=== PATIENT | male | born 1970 | race Caucasian/White ===

== ENCOUNTER 2023-06-26 11:07 | Outpatient (CLI) | payer OTHER, SELFPAY | END 2023-06-26 11:08 | disposition home or self-care (01) | PROVIDERS: PCP Family Medicine; Visit Provider Family Medicine | DX: N50.89 Other specified disorders of the male genital organs (principal); Z13.228 Encounter for screening for other metabolic disorders; Z13.220 Encounter for screening for lipoid disorders; Z12.5 Encounter for screening for malignant neoplasm of prostate; Z13.0 Encounter for screening for diseases of the blood and blood-forming organs and certain disorders involving the immune mechanism | CPT/HCPCS: 80048; 80061; 81001; 84460; 85025; G0103 ==

== ENCOUNTER 2023-07-04 07:59 | Outpatient (CLI) | payer OTHER, SELFPAY ==
--- NOTE | 2023-07-04 08:15 | US_ITS ---
Patient: MILES HSU Facility:?[facility] Patient ID:?[id number] Site Patient ID:?[id number]. Site :?[id number] Study:?US-Testicle SCROTUM-07/04/2023 8:42:41 AM Ordering Physician:JORGE GOMEZ M.D. Final Report: INDICATION: Left scrotal mass/hydrocele COMPARISON: none TECHNIQUE: Sheldon scale imaging was performed of the scrotum. In addition color Doppler and spectral Doppler analysis was performed of the testes. FINDINGS: Circumscribed heterogeneous hypoechoic and vascular mass within the left testicle measures 3.8 x 6.2 x 5.0 cm. Small left hydrocele. Left epididymis not visualized. Incidental simple cyst within the right testicle measures 5 x 5 x 6 millimeters. Right testicle measures 4.4 x 2.3 x 2.5 cm. Left testicle measures 6.5 x 4.4 x 5.3 cm. 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 Urology referral recommended. Dictated by Jorge Parker MD @ 07/04/2023 12:56:50 PM Signed by:?Jorge Parker MD @07/04/2023 12:56:50 PM (Electronic Signature)
== END 2023-07-04 08:00 | disposition home or self-care (01) ==
LOC: US 08:00
PROVIDERS: PCP Family Medicine; Visit Provider Family Medicine
DX: N50.89 Other specified disorders of the male genital organs (principal)
CPT/HCPCS: 76870; 93976

== ENCOUNTER 2023-07-17 07:45 | Outpatient (CLI) | payer OTHER, SELFPAY ==
--- NOTE | 2023-07-17 08:00 | CRLHL7_ITS ---
For Patients: As a result of the 21st Century Cures Act, medical imaging exams and procedure reports are released immediately into your electronic medical record. You may view this report before your referring provider. If you have questions, please contact your health care provider. Indication: TESTICULAR TUMOR - STAGING Technique: CT Chest W/ 122CC ISOVUE 370 Please note that all CT scans at this facility use dose modulation, iterative reconstruction, and/or weight-based dosing when appropriate to reduce radiation dose to as low as reasonably achievable. Comparison: Testicular ultrasound 07/04/2023 Findings: In the chest, the visualized thyroid is within normal limits. A few scattered subcentimeter mediastinal and right hilar lymph nodes are present. There is no pericardial effusion. Mild bilateral subareolar gynecomastia. No enlarged axillary lymph nodes. Scattered subcentimeter distal esophageal/GE junction lymph nodes are also present. No fracture is present. Curvilinear scarring is present within the posterior right upper lobe. Subpleural bleb formation noted bilaterally. No pleural effusion or infiltrate. No pulmonary edema or pulmonary nodule. No fracture or suspicious osseous lesion. In the abdomen, there is no intrahepatic mass. Diffuse hepatic steatosis is present. Gallbladder normal without calcified stones or biliary obstruction. The spleen is unremarkable. Normal pancreas. The adrenal glands are normal. No hydronephrosis. No solid renal mass. No hiatal hernia. No enlarged lymph nodes within the mesenteric fat or retroperitoneum. Numerous subcentimeter central mesenteric lymph nodes are present. In the pelvis, there is no bowel obstruction. Enlarged left testicle is again noted. The bladder is incompletely distended. The prostate is nonenlarged. Prostate calcifications incidentally noted. No pelvic or inguinal adenopathy. No bowel obstruction or free air. No free fluid or abscess. Appendix normal. No fracture. 4 millimeter density in the left iliac bone. 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 Impression: There are a few scattered subcentimeter intrathoracic and mesenteric lymph nodes present which are nonspecific. However, no enlarged lymph nodes are present within the chest, abdomen or pelvis. No pulmonary nodule or hepatic mass. Hepatic steatosis is present. 4 millimeter density within the left iliac bone, probable bone island. Please note that all CT scans at this facility use dose modulation, iterative reconstruction, and/or weight-based dosing when appropriate to reduce radiation dose to as low as reasonably achievable. Dictated by Jorge Parker MD @ 07/17/2023 12:26:53 PM (Electronically Signed)
== END 2023-07-17 07:46 | disposition home or self-care (01) ==
LOC: CT 07:45
PROVIDERS: PCP Family Medicine; Visit Provider Family Medicine
DX: R93.812 Abnormal radiologic findings on diagnostic imaging of left testicle (principal); K76.0 Fatty (change of) liver, not elsewhere classified; M89.9 Disorder of bone, unspecified
CPT/HCPCS: 71260; 74177; Q9967

== ENCOUNTER 2023-07-23 09:15 | Outpatient (CLI) | payer OTHER, SELFPAY ==
--- OUTSIDE RECORDS SUMMARY | 2023-07-27 14:58 | XMS_ITS | Clinical Summary ---
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 Name Role Phone Pcp, No Primary Care Provider Unavailabl e Allergies No known active allergies Medications No known medications Active Problems Problem Noted Date Diagnosed Date Benign tumor of floor of mouth Social History Tobacco Use Types Packs/Day Years Used Date Smoking Tobacco: Former Smokeless Tobacco: Never Alcohol Use Standard Drinks/Week Comments Yes 0 (1 standard drink = 0.6 oz pur e alcohol) twice a week Sex and Gender Information Value Date Recorded Sex Assigned at Not on file Gender Identity Not on file Sexual Orientation Not on file Obstetrics History Last Filed Vital Signs Vital Sign Reading Time Taken Comments Blood Pressure 125/76 02/26/2017 8:20 AM MEDICAL REGISTRAR Pulse 95 02/26/2017 8:20 AM MEDICAL REGISTRAR Temperature 37 ??C (98.6 ??F) 02/26/2017 6:58 AM MEDICAL REGISTRAR Respiratory Rate 18 02/26/2017 8:20 AM MEDICAL REGISTRAR Oxygen Saturation 95% 02/26/2017 8:20 AM MEDICAL REGISTRAR Inhaled Oxygen Concentration - - Weight 113.9 kg (251 lb 3 oz) 02/26/2017 6:42 AM MEDICAL REGISTRAR Height 185.4 cm (6' 1) 02/26/2017 6:42 AM MEDICAL REGISTRAR Body Mass Index 33.14 02/26/2017 6:42 AM MEDICAL REGISTRAR Plan of Treatment Health Maintenance Due Date Last Done Comments Tdap 01/23/1980 HIV for age 15-65 01/23/1984 Hepatitis C screening for ag e 18-79 1987 Tetanus booster 1989 Colonoscopy through age 75 2014 Lipids for age 45-75 2014 BMI (ht and wt on same day) for age 18+ 01/28/2018 01/28/2017 Depression screening for age 12+ 01/28/2018 01/29/20 17 Zoster (shingles) series for age 50+ (1 of 2) 2019 COVID-19 vaccine series ( - 2022- season) 2022 Influenza for age 50-64 10/20/2023 Pneumococcal series for age 6-64 Aged Out No longer eligible based on patient's age to complete this topic Care Teams Seed Corn Manager Production Relationship Specialty Start Date End Date Pcp, No . PCP - General 01/28/17
--- OUTSIDE RECORDS SUMMARY | 2023-07-27 14:58 | XMS_ITS | Data Portability ---
Author Organization [facility], [facility] Address [address] [place] [address] Care Team Providers Care Community Affairs Manager Name Role Phone RONI ARTIS Primary Care Provider Assessment No assessment recorded. Plan of Treatment Reminders Order Date Submit Date Provider Last Modified By Organization Details Last Modified Time Details Appointments None recorded. Lab urinalysis , dipstick 2023 024 [email or web address] [facility], [address] [place], [address], 14:27:21 Referral None recorded. Procedures None recorded. Surgeries None recorded. Imaging None recorded. Medication Orders None recorded. Patient TargetsNo targets recorded. Patient Instructions Encounter Date Encounter Id Patient Instructions Last Modified By Organization Details Last Modified Time 07/26/2023 [id number] discussed findings and will set up for left inguinal orchiectomy robby BETANCUR [email or web address] Not available 07/26/2023 14:43:10 Reason for Referral None Reported. Results Created Date Observation Date Name Description Value Unit Range Abnormal Flag LastModifiedBy Organization Detail LastModifiedTime 07/26/19 24 07/26/2023 urina lysis , dipst ick BLOOD Negati ve Not Available [facility] [address], [place], [address], 07/26/2023 14:25:13 07/26/19 24 07/26/2023 urina lysis , dipst ick NITRITES Negati ve Not Available [facility] [address], [place], [address], 07/26/2023 14:25:13 07/26/19 24 07/26/2023 urina lysis , dipst ick p.H. 5.0 Not Available [facility] [address], [place], [address], 07/26/2023 14:25:13 07/26/19 24 07/26/2023 urina lysis , dipst ick LEUKOCYTES Negati ve Not Available [facility] [address], [place], [address], 07/26/2023 14:25:13 07/23/19 24 07/17/2023 CT, chest + abdom en + pelvi s, w/ contr ast No observ ation record ed. [address] [place], [address], 07/24/2023 14:43:10 Result Notes None recorded. Procedures Surgical History None recorded. Imaging Results Imaging Date Name Status LastModified by Organiz ation Details LastModified Time 07/17/2023 CT, chest + abdomen + pelvis, w/ contrast completed [address] [place], [address], 07/24/2023 14:43:10 Procedure Notes None recorded. Medical Equipment None Reported. Allergies No known drug allergies Medications Name Sig Start Date Stop Date Status Note LastModified by Organization Details LastModified Time indomethacin 50 mg capsule TAKE ONE CAPSULE BY MOUTH THREE TIMES A DAY NEEDED FOR GOUT active Not Available Not Available No t Available Vitals Date Recorded Body height Body mass index (BMI) Body weight Provider Name and Address Organization Details Last Updated DateTime 07/26/2023 185.42 cm 31 kg/m2 260781.21 g Von Salcedo MD [address] [facility],[address], [place], [address], [facility] 07/26/2023 14:18:15 Social History Question Answer Notes LastModified by Organizat ion Details LastModified Time Tobacco Smoking Status Current Some Day Smoker Von Salcedo MD [address] [facility],[address], [place], [address], [facility] 07/26/2023 14:22:27 What Is Your Level Of Alcohol Consumption? Occasional [email or web address] Information not available 07/26/2023 What Is Your Level Of Caffeine Consumption? Occasional [email or web address] Information not available 07/26/2023 Are You Currently Employed? Yes [email or web address] Information not available 07/26/2023 Recreational Drug Use No Information not available 07/26/2023 What Was The Date Of Your Most Recent Tobacco Screening? 07/26/2023 [email or web address] Information not available 07/26/2023 Have You Ever Been Counseled For Unhealthy Alcohol Use? No [email or web address] Information not available 07/26/2023 What Is Your Relationship Status? Unknown [email or web address] Information not available 07/26/2023 How Much Tobacco Do You Smoke? 1 PPW [email or web address] Information not available 07/26/2023 Do You Use Any Illicit Or Recreational Drugs? No [email or web address] Information not available 07/26/2023 Has Tobacco Cessation Counseling Been Provided? No [email or web address] Information not available 07/26/2023 Do You Or Have You Ever Used Any Other Forms Of Tobacco Or Nicotine? No Information not available 07/26/2023 How Many Days In The Past Year Have You Consumed 5 Or More Drinks? 0 Information no t available 07/26/2023 Sex: Male Functional Status None recorded. Mental Status None recorded. Family History Relationship Description Onset Age of this Age Resolved Age Notes Mother Family history of cancer Pt is not sure what type of CA Medical History Condition Response Sexually Transmitted Infection N Diabetes N Other N Bleeding Disorder N High Blood Pressure N Kidney Stones N High Cholesterol N GERD/Acid Reflux N Heart Disease N Cancer N Depression N Lung Disease N Immunizations Vaccine Type Date Status Provider Name and Address Organization Details Recorded Time COVID-19, mRNA, LNP-S, PF, 30 mcg/0.3 mL dose 09/27/2020 completed Von Salcedo MD [address] [facility],[address], [place], [address], [facility] 07/26/2023 14:18:24 Past Encounters Encounter ID Performer Location Encounter Start Date Encounter Closed Date Diagnosis/Indication Diagnosis SNOMED-CT Code [id number] Von Salcedo MD [facility] [address] [place] [address] 07/26/2023 14:02:03 07/26/2023 14:43:39 Urinary tract infectious disease 53909679 Testicular mass [id number] Health Concerns Section Related Observation LastModified by Organization Detai ls LastModified Time None Recorded Concern Status LastModified by Organization Details LastModified Time None Recorded Advance Directives Directive None Recorded Payers Encounter Date Sequence Insurance Name Policy Number Policy Hernandez Covered Member ID Hernandez Member ID Guarantor Name 07/26/2023 1 [facility] [id number] Saul Mckinney [id number] Saul Mckinney Notes Date Note Type Note Provider Name and Address Organization Details Recorded Time 07/26/2023 text/html HPI Notes: seein g for left testis mass. was seen by PCP and thought to have hydrocele but U/S done and showed a 4x5cm left testis mass. had CT Ch/abd/pelvis showing no clear metastatic disease. had tumor markers done this week and AFP was 3 and B-Hcg was 18 (H), LDH 181. swelling started in Feb. Von Salcedo MD [address] [facility],[address], [place], [address], [facility] 07/26/2023 14:43:36
--- OUTSIDE RECORDS SUMMARY | 2023-07-27 14:58 | XMS_ITS | Continuity of Care Document ---
Author Organization [facility], [facility] Address [address] [place] [address] Care Team Providers Care Archives Technician Name Role Phone RONI ARTIS Primary Care Provider Assessment No assessment recorded. Plan of Treatment Reminders Order Date Submit Date Provider Last Modified By Organization Details Last Modified Time Details Appointments None recorded. Lab urinalysis , dipstick 2023 024 [email or web address] [facility], [address], [place], [address], 14:27:21 Referral None recorded. Procedures None recorded. Surgeries None recorded. Imaging None recorded. Medication Orders None recorded. Patient TargetsNo targets recorded. Patient Instructions Encounter Date Encounter Id Patient Instructions Last Modified By Organization Details Last Modified Time 07/26/2023 [id number] discussed findings and will set up for left inguinal orchiectomy robby or GYPSY [email or web address] Not available 07/26/2023 14:43:10 Reason for Referral None Reported. Results Created Date Observation Date Name Description Value Unit Range Abnormal Flag LastModifiedBy Organization Detail LastModifiedTime 07/26/1907/26/2023 urina lysis , dipst ick BLOOD Negati ve Not Available [facility] [address], [place], [address], 07/26/2023 14:25:13 07/26/19 24 07/26/2023 urina lysis , dipst ick NITRITES Negati ve Not Available [facility] [address], [place], [address], 07/26/2023 14:25:13 07/26/19 24 07/26/2023 urina lysis , dipst ick p.H. 5.0 Not Available [facility] [address], [place], [address], 07/26/2023 14:25:13 07/26/19 24 07/26/2023 urina lysis , dipst ick LEUKOCYTES Negati ve Not Available [facility] [address], [place], [address], 07/26/2023 14:25:13 07/23/19 24 07/17/2023 CT, chest + abdom en + pelvi s, w/ contr ast No observ ation record ed. [email or web address] [facility] [address] [place], [address], 07/24/2023 14:43:10 Result Notes None recorded. Medical Equipment None Reported. [...] Updated DateTime 07/26/2023 185.42 cm 31 kg/m2 660701.21 g Von Salcedo MD [address] [place] [address], [address], [facility] 07/26/2023 14:18:15 Social History Question Answer Notes LastModified by Organizat ion Details LastModified Time Tobacco Smoking Status Current Some Day Smoker Von Salcedo MD [address] [place] [address], [address], [facility] 07/26/2023 14:22:27 What Is Your Level Of Alcohol Consumption? Occasional [email or web address] Information not available 07/26/2023 What Is Your Level Of Caffeine Consumption? Occasional [email or web address] Information not available 07/26/2023 Are You Currently Employed? Yes [email or web address] Information not available 07/26/2023 Recreational Drug Use No [email or web address] Information not available 07/26/2023 What Was The Date Of Your Most Recent Tobacco Screening? 07/26/2023 [email or web address] Information not available 07/26/2023 Have You Ever Been Counseled For Unhealthy Alcohol Use? No [email or web address] Information not available 07/26/2023 What Is Your Relationship Status? Unknown [email or web address] Information not available 07/26/2023 How Much Tobacco Do You Smoke? 1 PPW [email or web address] Information not available 07/26/2023 Do You Use Any Illicit Or Recreational Drugs? No [email or web address] Information not available 07/26/2023 Has Tobacco Cessation Counseling Been Provided? No [email or web address] Information not available 07/26/2023 Do You Or Have You Ever Used Any Other Forms Of Tobacco Or Nicotine? No Information not available 07/26/2023 How Many Days In The Past Year Have You Consumed 5 Or More Drinks? 0 [email or web address] Information no t available 07/26/2023 Sex: Male [...] mL dose 09/27/2020 completed Von Salcedo MD [address] [place] [address],[place] [address], [address] 07/26/2023 14:18:24 Past Encounters Encounter ID Performer Location Encounter Start Date Encounter Closed Date Diagnosis/Indication Diagnosis SNOMED-CT Code [id number] Von Salcedo MD [facility] [address] [place] [address] 07/26/2023 14:02:03 07/26/2023 14:43:39 Urinary tract infectious disease [id number] Testicular mass 33176732 Health Concerns Section Related Observation LastModified by Organization Detai ls LastModified Time None Recorded Concern Status LastModified by Organization Details LastModified Time None Recorded Payers Encounter Date Sequence Insurance Name Policy Number Policy Hernandez Covered Member ID Hernandez Member ID Guarantor Name 07/26/2023 1 [facility] [id number] Saul Mckinney [id number] Saul Mckinney Notes Date Note Type Note [...] swelling started in Feb. Von Salcedo MD [address] [facility],[address], [place], [address], [facility] 07/26/2023 14:43:36
== END 2023-07-23 09:16 | disposition home or self-care (01) ==
LOC: NFLDREF 07-27 14:57
PROVIDERS: PCP Family Medicine; Referring Provider Family Medicine; Visit Provider Family Medicine
DX: D40.12 Neoplasm of uncertain behavior of left testis (principal)
CPT/HCPCS: 82105; 83615; 84704

== ENCOUNTER 2023-09-27 12:26 | Outpatient (CLI) | payer OTHER, SELFPAY ==
--- OUTSIDE RECORDS SUMMARY | 2023-09-27 12:32 | XMS_ITS | Clinical Summary ---
Author Organization [facility] Address [place], [place] [address] Care Team Providers Care Fountain Brush Assembler Name Role Phone Jorge Person MD Primary Care Provider + Allergies No known active allergies Medications Medication Sig Dispensed Refills Start Date End Date Status indomethacin (INDOCIN) 50 mg capsule Take 50 mg by mouth three times daily. Active oxyCODONE-acetamin ophen (PERCOCET) 5-325 mg per tabletIndications: Scrotal mass Take 1 Tablet by mouth every 6 hours if needed for Pain. Max acetaminophen dose: 4000mg in 24 hrs. 12 Tablet 08/14/2023 Active Active Problems Problem Noted Date Diagnosed Date Benign tumor of floor of mouth Encounters Date Type Department Care Team Description 08/14/2023 8:56 AM CDT - 08/14/2023 11:09 AM CDT Surgery [facility] [address] [place] [address] Von Salcedo MD left inguinal orchiectomy 08/14/2023 8:49 AM CDT Anesthesia Event [facility] [address] [place] [address] Ed Ireland MD Dawodu, Adeniyi Akintunde, CRNA 08/14/2023 6:43 AM CDT - 08/14/2023 1:24 PM CDT Hospital Encounter [facility] [address] [place] [address] Von Salcedo MD Scrotal mass (Primary Dx) Discharge Disposition: Home Self Care 08/13/2023 Travel from Last 3 Months Social History Tobacco Use Types Packs/Day Years [...] Sign Reading Time Taken Comments Blood Pressure 112/65 08/14/2023 12:22 PM CDT Pulse 61 08/14/2023 12:22 PM CDT Temperature 36.1 ??C (97 ??F) 08/14/2023 11: 15 AM CDT Respiratory Rate 12 08/14/2023 12:1 1 PM CDT Oxygen Saturation 94% 08/14/2023 12: 22 PM CDT Inhaled Oxygen Concentration - - Weight 108.7 kg (239 lb 9.6 oz) 08/14/2023 7:44 AM CDT Height 185.4 cm (6' 1) 08/14/2023 7:44 AM CDT Body Mass Index 31.61 08/14/2023 7:44 AM CDT Plan of Treatment Health Maintenance Due Date [...] of 2) 2019 COVID-19 vaccine series ( season) 2022 09/27/2020 Influenza for age 50-64 10/20/2023 Pneumococcal series for age 6-64 Aged Out No longer eligible based on patient's age to complete this topic Procedures Procedure Name Priority Date/Time Associated Diagnosis Comments PATH TISSUE EXAM Today 08/14/2023 9:34 AM CDT SUPRAGLOTTIC-LMA Routine 08/14/2023 9:06 AM CDT ORCHIECTOMY INGUINAL Elective 08/14/2023 8:28 AM CDT N50.89: Other specified disorders of the male genital organs SCAN CORRESP-EKG RESULTS 08/13/2023 3:39 PM CDT SCAN CORRESP-LABORATORY RESULTS 08/13/2023 3:39 PM CDT from Last 3 Months Results * PATH TISSUE EXAM (08/14/2023 9:34 AM CDT) Case Report Pathology Report ?Case: [id number] ? Authorizing Provider: ??Von Salcedo MD ?? Collected: ? 08/14/2023 0934 ? Ordering Location: ? [facility] ?Received: ?08/14/2023 0956 ? Hospital ? Pathologist: ? Juanjose Delgado MD ? Specimen: ?Left Testicle ? 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 Tumor is confined to the testis and involves the rete testis, 6.5 cm 3. The surgical margins are negative for tumor 4. Negative for lymphatic/vascular invasion by tumor 5. Intratubular germ cell neoplasia, unclassified 6. Benign spermatic cord lipoma 7. Please see testis cancer staging parameters below ?? 4 4:07 PM T [facility] Clinical Information Left testicular mass 4 4:07 PM T [facility] Gross Description A) Received fresh, labeled with the patient's name and left testicle, is a radical orchiectomy specimen (202.4 g, 13.9 x 7.0 x 5.5 cm) composed of the testis (7.2 x 6.2 x 4.8 cm), epididymis (7.3 x 3.7 x 1.7 cm), and attached spermatic cord (11.0 cm long and 1.4 cm in average diameter). The spermatic cord is pink-mckeon with a yellow soft mass measuring 5.7 x 3.5 x 3.2 cm grossly consistent with a cord lipoma. The pink-mckeon and purple-bustos loosely adherent parietal tunica vaginalis (inked blue) is intact and grossly unremarkable and incised revealing a thin tunica vaginalis cavity containing minimal clear serous fluid. The visceral tunica of the testis and epididymis is smooth without masses or roughening. Sectioning the testis reveals a 6.5 x 6.3 x 4.5 by cm well-defined pink-mckeon mass comprising approximately 95% of the testis, including the rete testis. ??This mass is characterized by homogenous lobulated fleshy pink-mckeon focally hyperemic cut surfaces and irregular vaguely defined borders. ??No discrete necrosis/hemorrhage or cystic change is identified. The mass is confined to the testis, abutting/pushing but not extending beyond the tunica albuginea. ??The mass measures 11.0 cm from the spermatic cord margin. Sectioning the attached lipoma reveals minus mckeon-yellow fatty focally hyperemic cut surfaces with no distinct significant hemorrhage/necrosis. The minimal peripherally located uninvolved testicular parenchyma consists of homogenous pink-mckeon unremarkable parenchyma which strings with ease. ??No discrete cysts are identified. The epididymis consists of soft mckeon-pink tubular soft tissue without any distinct masses or cysts. Specimen photographs have been uploaded to the case. Interactive Account Manager sections are submitted as follows: 1. Spermatic cord margin, en face (inked yellow) 2. ??Mass involving rete testes with adjacent hilar soft tissue 3. Mass to tunica albuginea/vaginalis 4. Mass to uninvolved testicular parenchyma 5. Mass to epididymis 6. ??Additional safety representative mass 7-8. ??Spermatic cord lipoma, safety representative ADW 08/14/2023 4 4:07 PM T [facility] Microscopic Description The final diagnosis is based on microscopic examination of appropriate sections of all specimens. Immunohistochemical staining was performed, the results of which are as follows: - OCT4: Positive (diffuse) - SALL4: Positive (diffuse) - hCG: Positive in multinucleated cells (syncytiotrophoblast) - CD30: Negative - Glypican: Negative 4 4:07 PM T [facility] SYNOPTIC REPORTING TESTIS: Radical Orchiectomy TESTIS: RADICAL ORCHIECTOMY - All Specimens 8th Edition - Protocol posted: 11/07/2022 CLINICAL ?? Pre-Orchiectomy Serum Tumor Marker(s): ?Beta-subunit of human chorionic gonadotropin (b-hCG) elevation ?? Post-Orchiectomy Serum Tumor Marker(s): ?Unknown ?? Serum Tumor Markers (S): ?SX (serum marker studies not available or performed) SPECIMEN ?? Specimen Laterality: ?Left TUMOR ?? Tumor Focality: ?Unifocal ?? Tumor Size: ?Greatest dimension of main tumor mass (Centimeters): 6.5 cm ? Additional Dimension of Main Tumor Mass (Centimeters): ?6.3 cm ? Additional Dimension of Main Tumor Mass (Centimeters): ?4.5 cm ?? Histologic Type: ?Seminoma with syncytiotrophoblastic cells ?? Tumor Extent: ?Invades rete testis ?? Lymphatic and / or Vascular Invasion: ?Not identified MARGINS ?? Margin Status: ?All margins negative for tumor REGIONAL LYMPH NODES ?? Regional Lymph Node Status: ?Not applicable (no regional lymph nodes submitted or found) pTNM CLASSIFICATION (AJCC 8th Edition) ?? Reporting of pT, pN, and (when applicable) pM categories is based on information available to the pathologist at the time the report is issued. As per the AJCC (Chapter 1, 8th Ed.) it is the managing physician? s responsibility to establish the final pathologic stage based upon all pertinent information, including but potentially not limited to this pathology report. ?? pT Category: ?pT1b ?? pN Category: ?pN not assigned (no nodes submitted or found) ADDITIONAL FINDINGS ?? Additional Findings: ?Germ cell neoplasia in situ (GCNIS) ?? Comment(s): ?Block for ancillary testing: A6 4:07 PM CDT [facility] Additional Information Interpreted at [facility] - [address] [place] [id number] Immunohistochemistry controls were reviewed and approved by the pathologist during this examination. 4:07 PM CDT [facility] Tissue (Left Testicle) 08/14/2023 9:34 AM CDT 08/14/2023 9:56 AM CDT Von Salcedo MD PATHOLOGY/CYTOLOG Y [facility] [address] [place] [address], * [facility] PR[facility] (08/14/2023 9:06 AM CDT) Narrative Deandre Nunn CRNA - 08/14/2023 9:06 AM CDT Deandre Nunn CRNA ? 08/14/2023 ??9:07 AM Procedure: Supraglottic Patient location during procedure: OR Supraglottic Airway Properties Mask Ventilation: not attempted Type: unique Tube Size: 5 Insertion Attempts: 1 Placement Verification: CO2 detection Assessment Assessment: atraumatic and dentition unchanged Ed Ireland MD ANESTHESIA PX NOTE O RDERABLES * SCAN CORRESP-LABORATORY RESULTS (08/13/2023 3:39 PM CDT) Narrative 08/13/2023 3:39 PM CDT Ordered by an unspecified provider. Other Clinical Staff OTHER * SCAN CORRESP-EKG RESULTS (08/13/2023 3:39 PM CDT) Narrative 08/13/2023 3:39 PM CDT Ordered by an unspecified provider. Other Clinical Staff OTHER from Last 3 Months Advance Directives * Full Code (Latest Code Status on File) Date Activated Date Inactivated Comments 08/14/2023 7:35 AM 08/14/2023 3:24 PM Question Answer Comments Code Status Discussion: Not Discussed Care Teams Fountain Brush Assembler Relationship Specialty Start Date End Date Jorge Person MD [address] [place] [address] PCP - General Family Practice 08/13/23
--- OUTSIDE RECORDS SUMMARY | 2023-09-27 12:32 | XMS_ITS | Continuity of Care Document ---
Author Organization [facility] Address [address] [place] [address] Care Team Providers Care Application Penetration Tester Name Role Phone ARTIS RONI Primary Care Provider Assessment No assessment recorded. Plan of Treatment Reminders Order Date Submit Date Provider Last Modified By Organization Details Last Modified Time Details Appointments None recorded. Lab urinalysis , dipstick 2023 024 [email or web address] [facility], [address], [place], [address], 14:27:21 Referral None recorded. Procedures None recorded. Surgeries None recorded. Imaging None recorded. Medication Orders None recorded. Patient TargetsNo targets recorded. Patient Instructions Encounter Date Encounter Id Patient Instructions Last Modified By Organization Details Last Modified Time 07/26/2023 [id number] discussed findings and will set up for left inguinal orchiectomy robby BETANCUR [email or web address] Not available 07/26/2023 14:43:10 Reason for Referral PT1b seminoma Referring Physician: Von Salcedo, Urology, Encounter Date: 09/06/2023 Results Created Date Observation Date Name Description Value Unit Range Abnormal Flag LastModifiedBy Organization Detail LastModifiedTime 07/26/1907/26/2023 urina lysis , dipst ick BLOOD Negati ve Not Available [facility] [address], [place], [address], 07/26/2023 14:25:13 07/26/19 24 07/26/2023 urina lysis , dipst ick NITRITES Negati ve Not Available [facility] [address], [place], [address], 07/26/2023 14:25:13 07/26/19 24 07/26/2023 urina lysis , dipst ick p.H. 5.0 Not Available [facility] [address], [place], [address], 07/26/2023 14:25:13 07/26/19 24 07/26/2023 urina lysis , dipst ick LEUKOCYTES Negati ve Not Available [facility] [address], [place], [address], 07/26/2023 14:25:13 07/23/19 24 07/17/2023 CT, chest + abdom en + pelvi s, w/ contr ast No observ ation record ed. [email or web address] [facility] [address] [place], [address], 07/24/2023 14:43:10 Result Notes None recorded. Medical Equipment None Reported. Allergies No known drug allergies Medications Name Sig Start Date Stop Date Status Note LastModified by Organization Details LastModified Time indomethaci n 50 mg capsule TAKE ONE CAPSULE BY MOUTH THREE TIMES A DAY; ADMINISTE R WITH FOOD OR MILK 09/04 completed Not Available Not Available Not Available Vitals Date Recorded Body height Body mass index (BMI) Body weight Provider Name and Address Organization Details Last Updated DateTime 07/26/2023 185.42 cm 31 kg/m2 749653.21 g Von Salcedo MD [address] [place] [address],[address], [address], [facility] 07/26/2023 14:18:15 Social History Question Answer Notes LastModified by Organizat ion Details LastModified Time Tobacco Smoking Status Current Some Day Smoker Von Salcedo MD [address] [place] [address],[address], [address], [facility] 07/26/2023 14:22:27 What Is Your Level Of Alcohol Consumption? Occasional [email or web address] Information not available 07/26/2023 What Is Your Level Of Caffeine Consumption? Occasional [email or web address] Information not available 07/26/2023 Are You Currently Employed? Yes [email or web address] Information not available 07/26/2023 Recreational Drug Use No [email or web address] Information not available 07/26/2023 What Was The Date Of Your Most Recent Tobacco Screening? 09/05/2023 [email or web address] Information not available 09/05/2023 Have You Ever Been Counseled For Unhealthy Alcohol Use? No [email or web address] Information not available 07/26/2023 What Is Your Relationship Status? Unknown [email or web address] Information not available 07/26/2023 How Much Tobacco Do You Smoke? 1 PPW [email or web address] Information not available 07/26/2023 Do You Use Any Illicit Or Recreational Drugs? No [email or web address] Information not available 07/26/2023 Has Tobacco Cessation Counseling Been Provided? No [email or web address] Information not available 07/26/2023 Do You Or Have You Ever Used Any Other Forms Of Tobacco Or Nicotine? No [email or web address] Information not available 07/26/2023 How Many Days In The Past Year Have You Consumed 5 Or More Drinks? 0 [email or web address] Information no t available 07/26/2023 Sex: Unknown Functional Status None recorded. Mental Status None recorded. Family History Relationship Description Onset Age of this Age Resolved Age Notes Mother Family history of malignant neoplasm Pt is not hossein e what type of CA Medical History Condition [...] mL dose 09/27/2020 completed Von Salcedo MD [address] [place] [address],[facility] [address], [place], [address], [facility] 07/26/2023 14:18:24 Past Encounters Encounter ID Performer Location Encounter Start Date Encounter Closed Date Diagnosis/Indication Diagnosis SNOMED-CT Code [id number] Von Salcedo MD [facility] [address] [place] [address] 07/26/2023 14:02:03 07/29/2023 11:06:24 Urinary tract infectious disease 58168031 Testicular mass 57486782 Health Concerns Section Related Observation LastModified by Organization Detai ls LastModified Time None Recorded Concern Status LastModified by Organization Details LastModified Time None Recorded Payers Encounter Date Sequence Insurance Name Policy Number Policy Hernandez Covered Member ID Hernandez Member ID Guarantor Name 07/26/2023 1 [facility] [id number] Madiha Mckinney [id number] Saul Mckinney Notes Date Note Type Note [...] started in Feb. Von Salcedo MD [address] [facility],[address], [place], [address], [facility] 07/26/2023 14:43:36
--- NOTE | 2023-09-27 13:00 | CRLHL7_ITS ---
For Patients: As a result of the Century Cures Act, medical imaging exams and procedure reports are released immediately into your electronic medical record. You may view this report before your referring provider. If you have questions, please contact your health care provider. Indication: TESTICULAR CANCER FOLLOW UP Technique: ABDOMEN PELVIS WITH IOSVUE 370 119CC AND WATER Please note that all CT scans at this facility use dose modulation, iterative reconstruction, and/or weight-based dosing when appropriate to reduce radiation dose to as low as reasonably achievable. Comparison: 07/17/2023 Findings: Lung bases are clear. Fatty liver. Gallbladder unremarkable. Normal spleen and pancreas. Normal adrenal glands, kidneys and ureters. Stable subcentimeter gastroesophageal junction lymph nodes. Bladder normal. Prostate calcifications. No bowel obstruction, free air, free fluid or abscess. Normal appendix. Postop changes of left orchiectomy. Stable appearance of the osseous structures without suspicious lesion. Impression: No evidence of metastatic disease. Please note that all CT scans at this facility use dose modulation, iterative reconstruction, and/or weight-based dosing when appropriate to reduce radiation dose to as low as reasonably achievable. Dictated by Jorge Parker MD @ 09/30/2023 9:16:01 AM (Electronically Signed)
== END 2023-09-27 12:27 | disposition home or self-care (01) ==
LOC: CT 12:31
PROVIDERS: PCP Family Medicine; Visit Provider Internal Medicine Hematology & Oncology
DX: N50.89 Other specified disorders of the male genital organs (principal); C62.90 Malignant neoplasm of unspecified testis, unspecified whether descended or undescended
CPT/HCPCS: 74177; Q9967

== ENCOUNTER 2024-03-11 08:45 | Outpatient (CLI) | payer OTHER, SELFPAY ==
--- NOTE | 2024-03-11 09:00 | CRLHL7_ITS ---
For Patients: As a result of the Century Cures Act, medical imaging exams and procedure reports are released immediately into your electronic medical record. You may view this report before your referring provider. If you have questions, please contact your health care provider. INDICATION: Malignant neoplasm of testis TECHNIQUE: CT chest, abdomen and pelvis acquired with 118 mL Isovue 370 IV contrast. COMPARISON: 09/27/[address] FINDINGS: CHEST: Cardiovascular structures: Heart size is normal. Thoracic aorta and main pulmonary artery are normal in caliber. Mediastinum and jayde: Several borderline enlarged right hilar lymph nodes measuring up to 1 cm in short axis diameter. Lungs and pleura: Lungs and pleural spaces are clear. No suspicious nodules, infiltrates, or effusions. Chest wall and axilla: No mass or adenopathy. Bones: No suspicious bone lesions. Unremarkable for age. ABDOMEN AND PELVIS: Liver: Steatosis. Gallbladder and bile ducts: Unremarkable. Pancreas: Unremarkable. Spleen: Unremarkable. Adrenal glands: Unremarkable. Kidneys: Unremarkable. GI tract: Unremarkable. Vascular structures: Unremarkable. Lymph nodes: Unremarkable. Miscellaneous: Unremarkable. No free air or significant free fluid. Pelvic Organs: Left orchiectomy. Bones: No suspicious bone lesions. Unremarkable for age. IMPRESSION: 1. Borderline enlarged right hilar lymph nodes. Recommend attention on follow-up studies. 2. Hepatic steatosis. 3. Left orchiectomy. No convincing metastatic disease. Please note that all CT scans at this facility use dose modulation, iterative reconstruction, and/or weight-based dosing when appropriate to reduce radiation dose to as low as reasonably achievable. Dictated by Surya Washburn MD @ 03/11/2024 12:38:23 PM (Electronically Signed)
== END 2024-03-11 08:46 | disposition home or self-care (01) ==
LOC: CT 08:45
PROVIDERS: PCP Family Medicine; Visit Provider Internal Medicine Hematology & Oncology
DX: C62.90 Malignant neoplasm of unspecified testis, unspecified whether descended or undescended (principal); N50.89 Other specified disorders of the male genital organs; K76.0 Fatty (change of) liver, not elsewhere classified
CPT/HCPCS: 71260; 74177; Q9967

== ENCOUNTER 2024-03-11 08:45 | Outpatient (RCR) | payer OTHER, SELFPAY ==
[2023-09-27 13:59] LABS: Creatinine* 0.9 mg/dL (0.5-1.5); Est. Creatinine Clearance* 102.99; Estimated Glomerular Filt Rate 101 ml/min
[2023-09-29 07:37] LABS: Beta-hCG Quant Tumor Marker <1 IU/L (0-3)
[2024-03-11 09:10] LABS: Basophils Absolute Auto 0.03 K/uL (0.00-0.30); Basophils Percent Auto 0.4 % (0.0-3.0); Eosinophils Absolute Auto 0.21 K/uL (0.00-0.50); Eosinophils Percent Auto 3.1 % (0.0-7.0); Hematocrit 44.1 % (37.0-53.0); Hemoglobin* 14.5 gm/dL (13.5-17.5); Immature Granulocytes Abs Auto 0.01 K/uL (0.00-0.30); Immature Granulocytes Pct Auto 0.1 %; Lymphocytes Absolute Auto 2.05 K/uL (0.90-2.90); Lymphocytes Percent Auto 30.4 % (20-44); Mean Corpuscular HGB Conc 33 gm/dL (32-36); Mean Corpuscular Hemoglobin 31 pg (26-34); Mean Corpuscular Volume 94 fL (80-100); Monocytes Percent Auto 7.9 % (0.0-11.0); Neutrophils Absolute Auto 3.92 K/uL (1.7-7.0); Neutrophils Percent Auto 58.1 % (42.0-72.0); Platelet Count* 248 K/uL (140-440); RDW Coefficient of Variation % 12.6 % (11.5-15.5); Red Blood Count 4.68 m/uL (4.30-5.90); White Blood Count* 6.75 K/uL (4.50-11.00)
[2024-03-11 09:16] LABS: Slide Review Reflex No
[2024-03-11 09:17] LABS: Albumin* 4.7 g/dL (3.3-5.0); Chloride* 105 mmol/L (96-114); Potassium* 4.4 mmol/L (3.6-5.1); Sodium* 139 mmol/L (135-149)
[2024-03-11 09:19] LABS: Est. Creatinine Clearance* 91.61; Estimated Glomerular Filt Rate 89 ml/min
[2024-03-11 09:20] LABS: Alanine Aminotransferase* 27 U/L (4-50); Alkaline Phosphatase* 46 U/L (40-150); Anion Gap 7 mEq/L (7-15); Aspartate Amino Transferase* 23 U/L (12-35); Bilirubin Total* 0.5 mg/dL (0.1-1.5); Blood Urea Nitrogen* 13 mg/dL (7-30); Calcium* 9.3 mg/dL (8.4-10.6); Carbon Dioxide* 27 mmol/L (20-32); Glucose* 108 mg/dL (60-115); Lactate Dehydrogenase* 135 U/L (120-246); Total Protein* 7.7 g/dL (6.0-8.3)
[2024-03-11 09:44] LABS: HCG Quantitative* < 2.39 mIU/mL (0-5.00)
[2024-03-12 17:09] LABS: Alpha Fetoprotein Tumor Marker 2 ng/mL (0-9)
[2024-03-18 13:07] LABS: Beta-hCG Quant Tumor Marker <1 IU/L (0-3)
== END 2024-03-16 23:59 | disposition home or self-care (01) ==
LOC: CCIC 08:45
PROVIDERS: PCP Family Medicine; Referring Provider Family Medicine; Visit Provider Internal Medicine Hematology & Oncology
DX: C62.92 Malignant neoplasm of left testis, unspecified whether descended or undescended (principal)
CPT/HCPCS: 36415; 80053; 82105; 82565; 83615; 84702; 84704; 85025; 99202; 99204; 99205; 99213; 99214; G0463

== ENCOUNTER 2024-06-25 09:27 | Outpatient (CLI) | payer OTHER, SELFPAY ==
--- NOTE | 2024-06-25 10:00 | CRLHL7_ITS ---
For Patients: As a result of the Century Cures Act, medical imaging exams and procedure reports are released immediately into your electronic medical record. You may view this report before your referring provider. If you have questions, please contact your health care provider. INDICATION: Malignant neoplasm of testis, six-month follow-up. TECHNIQUE: CT chest, abdomen and pelvis acquired 119 cc Isovue 370 IV contrast. COMPARISON: CT chest abdomen pelvis 03/11/2024. FINDINGS: CHEST: Cardiovascular structures: No cardiomegaly or pericardial effusion. Main pulmonary artery normal in caliber. No thoracic aortic aneurysm. Mediastinum and jayde: Prominent right hilar lymph nodes measuring up to 1.2 cm in short axis (series 2, image 53), grossly unchanged. No mediastinal lymphadenopathy. Lungs and pleura: No suspicious pulmonary nodule or mass. No focal consolidation. No pleural effusion or pneumothorax. Chest wall and axilla: No suspicious chest wall mass or fluid collection. No axillary lymphadenopathy. Bones: No acute or suspicious abnormality. ABDOMEN AND PELVIS: Liver: Hepatic steatosis. Gallbladder and bile ducts: Unremarkable. Pancreas: Unremarkable. Spleen: Unremarkable. Adrenal glands: Unremarkable. Kidneys: Unremarkable. GI tract: Unremarkable. Vascular structures: Scattered atherosclerotic calcifications. No abdominal aortic aneurysm. Patent vasculature. Lymph nodes: No suspicious lymphadenopathy. Peritoneum/Retroperitoneum/Abdominal Wall: No ascites or pneumoperitoneum. No acute abdominal wall abnormality. Pelvic Organs: Normal bladder. Unremarkable prostate and seminal vesicles. Bones and superficial soft tissues: No acute or suspicious abnormality. IMPRESSION: 1. Mildly enlarged right hilar lymph nodes, grossly unchanged. No significant change when compared to the prior CT of the chest, abdomen, and pelvis. 2. Hepatic steatosis. Please note that all CT scans at this facility use dose modulation, iterative reconstruction, and/or weight-based dosing when appropriate to reduce radiation dose to as low as reasonably achievable. Dictated by Damien Gonzales MD @ 06/27/2024 9:58:42 AM (Electronically Signed)
== END 2024-06-25 09:28 | disposition home or self-care (01) ==
LOC: CT 09:27
PROVIDERS: PCP Family Medicine; Visit Provider Internal Medicine Hematology & Oncology
DX: C62.90 Malignant neoplasm of unspecified testis, unspecified whether descended or undescended (principal); K76.0 Fatty (change of) liver, not elsewhere classified; N50.89 Other specified disorders of the male genital organs
CPT/HCPCS: 71260; 74177; Q9967

== ENCOUNTER 2024-07-01 08:30 | Outpatient (RCR) | payer OTHER, SELFPAY ==
--- NOTE | 2024-05-12 16:01 | ONC.NURNOTE ---
Patient left a voicemail stating he needs to reschedule his appt with Dr. Santiago on 06/22. RN called patient back to reschedule. No answer. LVM to call back if he still needed to move his appt.
[2024-06-25 09:48] LABS: Hematocrit* 45.3 % (37.0-53.0); Hemoglobin* 15.1 gm/dL (13.5-17.5); Immature Granulocytes Abs Auto 0.05 K/uL (0.00-0.30); Immature Granulocytes Pct Auto 0.8 %; Lymphocytes Absolute Auto 1.59 K/uL (0.90-2.90); Mean Corpuscular HGB Conc 33 gm/dL (32-36); Mean Corpuscular Hemoglobin 31 pg (26-34); Mean Corpuscular Volume 93 fL (80-100); RDW Coefficient of Variation % 13.0 % (11.5-15.5); Red Blood Count* 4.89 m/uL (4.30-5.90); White Blood Count* 6.63 K/uL (4.50-11.00)
[2024-06-25 09:52] LABS: Slide Review Reflex No
[2024-06-25 10:02] LABS: Albumin* 4.7 g/dL (3.3-5.0); Chloride* 103 mmol/L (96-114); Potassium* 4.3 mmol/L (3.6-5.1); Sodium* 135 mmol/L (135-149)
[2024-06-25 10:04] LABS: Alanine Aminotransferase* 31 U/L (4-50); Alkaline Phosphatase* 54 U/L (40-150); Anion Gap 10 mEq/L (7-15); Aspartate Amino Transferase* 33 U/L (12-35); Bilirubin Total* 0.7 mg/dL (0.1-1.5); Blood Urea Nitrogen* 18 mg/dL (7-30); Carbon Dioxide* 22 mmol/L (20-32); Creatinine* 1.0 mg/dL (0.5-1.5); Est. Creatinine Clearance* 88.90; Estimated Glomerular Filt Rate 89 ml/min
[2024-06-25 10:05] LABS: Calcium* 9.4 mg/dL (8.4-10.6); Glucose* 104 mg/dL (60-115); Total Protein* 7.6 g/dL (6.0-8.3)
== END 2024-09-14 23:59 | disposition home or self-care (01) ==
LOC: CCIC 08:30
PROVIDERS: PCP Family Medicine; Referring Provider Family Medicine; Visit Provider Internal Medicine Hematology & Oncology
DX: C62.92 Malignant neoplasm of left testis, unspecified whether descended or undescended (principal); Z72.0 Tobacco use
CPT/HCPCS: 36415; 80053; 82105; 83615; 84702; 84704; 85025; 99214; G0463